=== PATIENT | female | born 1945 | race Caucasian/White ===

== ENCOUNTER 2019-05-04 06:37 | Emergency (ER) | payer MEDICARE, OTHER ==
[2019-05-04] MEDS ORDERED: traMADol HCl 50 MG TAB ONE (06:56)
[2019-05-04] MEDS ORDERED: Aspirin Chewable 81 MG TAB ONE (06:57)
[2019-05-04] MEDS ORDERED: methylPREDNISolone Sod Succ/PF 125 MG/2 ML VIAL ONE (07:14)
[2019-05-04 07:30] LABS: Band 2 % (5-11); Eosinophils 8 % (0-10); Hemoglobin 13.2 g/dL (12.0-16.0); Lymphocytes 32 % (21-51); MDiff Complete? YES; Mean Corpuscular HGB CONC 31.6 g/dL (32.0-36.0); Mean Corpuscular Hemoglobin 26.9 pg (27.0-31.0); Mean Platelet Volume 7.4 fL (7.4-10.4); Monocytes 8 % (0-10); Neutrophil 48 % (42-75); Platelet Count 243 thou/uL (130-400); Platelet Morphology Comment Appears Adequate; RBC Distribution Width 12.3 % (11.5-14.5); RBC Morphology Normal; Red Blood Cell (RBC) Count 4.89 mill/uL (4.20-5.40); White Blood Cell (WBC) Count 8.5 thou/uL (4.8-10.8)
[2019-05-04 07:39] LABS: ALT (SGPT) 18 U/L (8-55); AST (SGOT) 19 U/L (5-34); Albumin 4.1 g/dL (3.4-4.8); Alkaline Phosphatase 111 U/L (40-150); Anion Gap 14 mmol/L (10-20); BUN (Urea Nitrogen) 14 mg/dL (9.8-20.1); Bilirubin, Total 0.6 mg/dL (0.2-1.2); CK (CPK) 105 U/L (29-168); Calc. Creatinine Clearance 0 mL/min (70-130); Calcium 9.3 mg/dL (7.8-10.44); Carbon Dioxide 23 mmol/L (23-31); Chloride 106 mmol/L (98-107); Estimated GFR-MDRD 56; Globulin 2.6 g/dL (2.4-3.5); Glucose 123 mg/dL (83-110); Potassium 4.2 mmol/L (3.5-5.1); Protein, Total 6.7 g/dL (6.0-8.3); Sodium 139 mmol/L (136-145)
[2019-05-04] MEDS ORDERED: Ondansetron PF 4 MG/2 ML Vial ONE (08:07)
[2019-05-04] MEDS ORDERED: Morphine 4 MG/ML VIAL ONE (08:07)
--- NOTE | 2019-05-04 10:00 | RAD ---
PORTABLE CHEST: HISTORY: Chest pain. COMPARISON: 11/28/2018 exam. FINDINGS: Heart size is within normal limits. There are atherosclerotic changes of the aorta. There is some l inear scarring in the mid left lung field. No acute process noted. IMPRESSION: No active intrathoracic disease. POS: [facility]
== END 2019-05-04 11:30 | disposition home or self-care (01) ==
LOC: NAV ERS 06:37
DX: T63.441A Toxic effect of venom of bees, accidental (unintentional), initial encounter (principal); R07.9 Chest pain, unspecified
CPT/HCPCS: 36415; 71045; 80053; 82550; 84484; 85025; 93005; 94760; 96374; 96375; J2270; J2405; J2930